=== PATIENT | male | born 1985 | race Caucasian/White ===

== ENCOUNTER 2024-05-09 14:17 | Emergency (ER) | payer OTHER, SELFPAY ==
[2024-05-09 14:20] VITALS: BP 143/95; PULSE 76; TEMP 36.6; O2SAT 96; BMI 22.5
--- NOTE | 2024-05-09 14:26 | ED_ITS ---
HPI - Wound/Laceration General Chief Complaint: Wound/Laceration Stated Complaint: LEFT WRIST INJURY Time Seen by Provider: 05/09/24 14:20 Source: patient Mode of arrival: walk-in Limitations: no limitations History of Present Illness HPI narrative: Patient is a 39-year-old male who presents to the ER for the evaluation of a laceration to the volar left wrist. He states he was at work using utility knife when he lacerated the volar aspect of the left wrist just proximal to the wrist joint. Bleeding is well-controlled. Tetanus is up-to-date. No other associated injuries. He is right-hand dominant Related Data Home Medications ?Medication ?Instructions ?Recorded ?Confirmed No Known Home Medications 05/09/24 05/09/24 Allergies Allergy/AdvReac Type Severity Reaction Status Date / Time Penicillins Allergy Severe Rash Verified 05/09/24 14:24 Review of Systems 2 ROS Constitutional Denies: fever or chills Ears, nose, mouth, and throat Denies: throat pain or nasal congestion Respiratory Denies: shortness of breath Gastrointestinal Denies: nausea or vomiting Musculoskeletal Denies: back pain or neck pain Integumentary/Breast Denies: rash, redness or skin pain Neurological Denies: numbness in extremities or weakness in extremities Hematologic/Lymphatic Denies: easy bruising or easy bleeding PFSH PFSH Social History Little interest or pleasure in doing things: not at all Feeling down, depressed, or hopeless: not at all Exam Narrative Exam Narrative: Gen.: Awake, alert, in no distress Head: Normocephalic, atraumatic ENT: Moist mucous membranes Respiratory: No respiratory distress Extremities: Normal flexion and extension at the left wrist, 6 cm superficial laceration in the volar aspect of the left wrist in the midline, no evidence of vascular injury or active bleeding at this time. No deep laceration through the subcutaneous tissue/muscle/tendon. Psych: Normal mood and affect Neuro: No focal neuro deficit Skin: Warm, dry Constitutional Vital Signs, click to edit/add: Last Vital Signs Temp 98 F 05/09/24 14:20 Pulse 76 05/09/24 14:20 Resp 20 05/09/24 14:20 BP 143/95 H 05/09/24 14:20 Pulse Ox 96 05/09/24 14:20 O2 Del Method Room Air 05/09/24 14:20 Course Vital Signs Vital signs: Vital Signs Temperature 98 F 05/09/24 14:20 Pulse Rate 76 05/09/24 14:20 Respiratory Rate 20 05/09/24 14:20 Blood Pressure 143/95 H 05/09/24 14:20 Pulse Oximetry 96 05/09/24 14:20 Oxygen Delivery Method Room Air 05/09/24 14:20 Temperature 98 F 05/09/24 14:20 Pulse Rate 76 05/09/24 14:20 Respiratory Rate 20 05/09/24 14:20 Blood Pressure 143/95 H 05/09/24 14:20 Pulse Oximetry 96 05/09/24 14:20 Oxygen Delivery Method Room Air 05/09/24 14:20 MDM - Wound/Laceration MDM Narrative Medical decision making narrative: Laceration repaired without difficulty. Please see procedure note for details. Follow-up with occupational health for suture removal and work clearance and return to the ER if symptoms change or worsen. Laceration repair: Done under sterile conditions. The use of Shur-Clens prep the area. Local injection with lidocaine 1% was used, approximately 6 cc. The wound was irrigated copiously with normal saline. The wound was explored there was no evidence of foreign material. The laceration was approximated with 4-0 nylon. 6 simple interrupted sutures were placed. Patient tolerated the procedure well. The patient was neurovascularly intact post. the patient had bacitracin applied to the laceration and a dry sterile dressing was place. The patient will need to follow-up in the next 8-10 days for removal SHARED APC VISIT, PHYSICIAN ATTESTATION: [id number] I performed a substantive part of the MDM during the patient?s E/M visit. I personally evaluated and examined the patient. I personally made or approved the documented management plan and acknowledge its risk of complications. Medical Records Attestation: I reviewed the patient's medical records. Discharge Plan Discharge Chief Complaint: Wound/Laceration Clinical Impression: Laceration of left wrist Patient Disposition: Home, Self-Care Time of Disposition Decision: 14:26 Condition: Good Prescriptions / Home Meds: No Action No Known Home Medications Print Language: Bangladeshi Instructions: Laceration (ED) Additional Instructions: Sutures removed in 8-10 days with occupational health Referrals: [facility]Outside[facility] - 1 week
[2024-05-09] MEDS: BACITRACIN 0.9 GM PACKET 1 PACKET TOPICAL (14:30)
[2024-05-09] MEDS: LIDOCAINE HCL 1% 100 MG/10 ML MDV INJ (14:31)
[2024-05-09 15:08] VITALS: BP 132/87; PULSE 87; O2SAT 99
== END 2024-05-09 15:08 | disposition home or self-care (01) ==
PROVIDERS: Emergency Provider Emergency Medicine; PCP Family Medicine
DX: S61.512A Laceration without foreign body of left wrist, initial encounter (principal); W26.0XXA Contact with knife, initial encounter
CPT/HCPCS: 12002; 99282